=== PATIENT | female | born 1990 | race Two or more races ===

== ENCOUNTER 2018-10-26 06:10 | Inpatient (IN) | payer OTHER ==
[2018-10-26] MEDS: DEXTROSE 5%-LACTATED RINGERS 1,000 ML IV SCH ×2 (06:45→14:58)
[2018-10-26] MEDS ORDERED: AMPICILLIN SODIUM 2 GM VIAL ONE (07:29)
[2018-10-26] MEDS ORDERED: AMPICILLIN - 2 GM in SODIUM CHLORIDE 100 ML IVPB ONE (07:30)
[2018-10-26 08:03] VITALS: BMI 30.2
[2018-10-26 08:29] LABS: BASO % 0.2 % (0-2.0); EOS % 1.7 % (0-4.5); HEMATOCRIT 39.2 % (32.4-45.2); HEMOGLOBIN 13.6 GM/dL (10.7-15.3); LYMPH % 18.4 % (8-40); MCH 32.2 pg (25.7-33.7); MCHC 34.6 g/dl (32.0-36.0); MEAN CELL VOLUME 93.1 fl (80-96); MEAN PLT VOLUME 10.3 fl (7.5-11.1); MONO % 7.2 % (3.8-10.2); NEUT % 72.5 % (42.8-82.8); PLATELET COUNT 221 K/MM3 (134-434); RBC 4.21 M/mm3 (3.60-5.2); RDW 12.8 % (11.6-15.6); WHITE BLOOD COUNT 9.5 K/mm3 (4.0-10.0)
[2018-10-26 08:35] LABS: INR 0.92 (0.83-1.09); PROTHROMBIN TIME (PATIENT) 10.9 SEC (9.7-13.0)
[2018-10-26 08:38] LABS: ACTIVATED PTT 28.3 SECONDS (25.2-36.5)
[2018-10-26 08:47] LABS: ALBUMIN 2.9 g/dl (3.4-5.0); ALK PHOS 131 U/L (45-117); ANION GAP 10 MMOL/L (8-16); BILIRUBIN,TOTAL 0.5 mg/dL (0.2-1); BLOOD UREA NITROGEN 12 mg/dL (7-18); CALCIUM 8.6 mg/dL (8.5-10.1); CHLORIDE 106 mmol/L (98-107); CO2 23 mmol/L (21-32); CREATININE 0.6 mg/dL (0.55-1.3); GLUCOSE,RANDOM 86 mg/dL (74-106); POTASSIUM 3.7 mmol/L (3.5-5.1); SGOT/AST 24 U/L (15-37); SGPT/ALT 24 U/L (13-61); SODIUM 139 mmol/L (136-145); TOT PROT 6.4 g/dl (6.4-8.2)
[2018-10-26] MEDS: AMPICILLIN - 1 GM in SODIUM CHLORIDE 100 ML IVPB SCH ×4 (11:30→23:30)
[2018-10-26] MEDS ORDERED: AMPICILLIN SODIUM 1 GM VIAL ONE ×4 (11:35→23:46)
--- NOTE | 2018-10-26 12:13 | PN ---
Progress Note (short form) - Note Progress Note: cx closed , posr, 25 perecent effaced, vx -3 , gross ROM, clear , irregular contraction, induction, vs expectant management and iv antibiotics for unknown GBS discussed
[2018-10-26] MEDS ORDERED: BUTORPHANOL TARTRATE 2 MG/ML VIAL IVPUSH PRN (12:14)
[2018-10-26] MEDS ORDERED: PROMETHAZINE HCL 25 MG/1 ML VIAL IVPUSH ONE (12:14)
--- NOTE | 2018-10-26 12:14 | HP ---
Past Medical History - Primary Care Physician PCP:: Catracho Arnold - Admission Chief Complaint: 38 weeks, PROM History of Present Illness: 27 yo f 38 weeks with SROM since 5 am today, clear fluid, , cx closed , vx -3 mrmarni, nitrazine positve, fhr cat 1. irregular contraction., expectant management vs induction of labor discussed , risks of infection discussed History Source: Patient Limitations to Obtaining History: No Limitations - Past Medical History ...: 1 ...Para: 0 ...Term: 0 ...: 0 ...Spon : 0 ...Induced : 0 ...Multiple Gestation: 0 ...EDC by Sono: 11/07/18 - Past Surgical History Hx Myomectomy: No Hx Transabdominal Cerclage: No - Smoking History Smoking history: Never smoked Have you smoked in the past 12 months: No - Alcohol/Substance Use Hx Alcohol Use: No - Social History History of Recent Travel: No Home Medications - Allergies Allergies/Adverse Reactions: Allergies Allergy/AdvReac Type Severity Reaction Status Date / Time No Known Allergies Allergy Verified 10/26/18 18:45 - Home Medications Home Medications: Ambulatory Orders Pnv,Calcium 72/Iron/Folic Acid [ Plus Tablet] 1 tab PO DAILY 10/08/18 Review of Systems - Review of Systems Constitutional: reports: No Symptoms Eyes: reports: No Symptoms HENT: reports: No Symptoms Neck: reports: No Symptoms Cardiovascular: reports: No Symptoms Gastrointestinal: reports: No Symptoms Genitourinary: reports: No Symptoms Breasts: reports: No Symptoms Reported Musculoskeletal: reports: No Symptoms Integumentary: reports: No Symptoms Neurological: reports: No Symptoms Endocrine: reports: No Symptoms Hematology/Lymphatic: reports: No Symptoms Psychiatric: reports: No Symptoms Physical Exam - Maternity Vital Signs: Vital Signs Temperature 98.0 F 10/26/18 10:00 Pulse Rate 80 10/26/18 11:00 Respiratory Rate 20 10/26/18 11:00 Blood Pressure 120/62 10/26/18 11:00 O2 Sat by Pulse Oximetry (%) Constitutional: Yes: Well Nourished, No Distress, Calm Eyes: Yes: WNL, Conjunctiva Clear, EOM Intact HENT: Yes: WNL, Atraumatic, Normocephalic Neck: Yes: WNL, Supple, Trachea Midline Cardiovascular: Yes: WNL, Regular Rate and Rhythm Breast(s): Yes: WNL - Abdominal Exam/OB Fundal Height: 38 Number of Fetuses: Single Presentation: Vertex Contractions: Yes Regularity: Irregular Intensity: Mild/Mod Monitor Mode: External Heart Rate Location: [facility] Category: I Accelerations: Uniform Decelerations: None - Vaginal Exam/OB Vaginal Bleediing: No Speculum Exam: Yes Dilatation (cm): closed Effacement (%): 25 Amniotic Membrane Status: Intact Nitrazine Test: Positive Station: -3 - Physical Exam Musculoskeletal: Yes: WNL Extremities: Yes: WNL Edema: LLE: Trace, RLE: Trace Deep Tendon Reflex Grade: Normal +2 ...Motor Strength: WNL Psychiatric: Yes: WNL - Labs Lab Results: CBC, BMP 10/26/18 07:50 10/26/18 07:50 Hemorrhage Risk Assessment - Risk Factors Medium Risk Factors: Yes: None High Risk Factors: Yes: None Risk Score: 1 Risk Level: Medium Risk Problem List - Problems (1) with 38 completed weeks gestation Code(s): Z3A.38 - 38 WEEKS GESTATION OF (2) PROM (premature rupture of membranes) Code(s): O42.90 - BLAZE ROM, 7TH0 BETW RUPT & ONST LABR, UNSP WEEKS OF GEST Qualifiers: PROM onset of labor timing: onset of labor within 24 hours of rupture PROM gestational age: -third trimester Qualified Code(s): O42.013 - premature rupture of membranes, onset of labor within 24 hours of rupture, third trimester Assessment/Plan admit, fhm iv amp. for unknown GBS pain management
[2018-10-26] MEDS ORDERED: TUBERCULIN PPD 5 TU/0.1ML SYRINGE (IN PATIENT USE ONLY) ID ONE (12:15)
[2018-10-26 12:27] LABS: COCAINE, UR NEGATIVE ng/ml (CUTOFF=300); METHADONE, UR NEGATIVE ng/ml (CUTOFF=300); OPIATES, URI NEGATIVE ng/ml (CUTOFF=300); PHENCYCLIDINE,URINE NEGATIVE ng/ml (CUTOFF=25); URINE AMPHETAMINES NEGATIVE ng/ml (CUTOFF=500); URINE BARBITURATES NEGATIVE ng/ml (CUTOFF=200); URINE BENZODIAZEPINES NEGATIVE ng/ml (CUTOFF=200)
[2018-10-26 13:46] LABS: EPI CELLS 18.3 /HPF (0-5/HPF); PH,URINE 7.5 (5.0-8.0); URINE APPEARANCE TURBID; URINE BILIRUBIN NEGATIVE (NEGATIVE); URINE CASTS 356 /lpf (0-8); URINE COLOR YELLOW; URINE GLUCOSE (UA) NEGATIVE (NEGATIVE); URINE KETONE NEGATIVE (NEGATIVE); URINE LEUK ESTERASE NEGATIVE (NEGATIVE); URINE NITRITE NEGATIVE (NEGATIVE); URINE PROTEIN 2+ (NEGATIVE); URINE RBC 169 /hpf (0-4); URINE UROBILINOGEN 0.2 mg/dL (0.2-1.0); URINE WBC 1 /hpf (0-5)
[2018-10-26 13:47] LABS: URINE BACTERIA 15.1 /hpf (NEGATIVE)
[2018-10-26] MEDS ORDERED: BUTORPHANOL TARTRATE 2 MG/ML VIAL ONE (18:22)
[2018-10-26] MEDS ORDERED: PROMETHAZINE HCL 25 MG/1 ML VIAL ONE (18:22)
[2018-10-26] MEDS: ELECTROLYTE-148 SOLN 1,000 ML IV SCH (20:30)
[2018-10-26] MEDS ORDERED: NALOXONE HCL 0.4 MG/ML VIAL IVPUSH PRN (20:37)
[2018-10-26] MEDS ORDERED: LIDO 2%/EPI 1:200000 PRESRVFRE (20 ML SDVIAL) ONE (20:40)
[2018-10-26] MEDS ORDERED: FENTANYL/BUPIVACAINE/NS/PF - PCEA - 50 ML DISP.SYRIN EP ONE (20:42)
[2018-10-26] MEDS ORDERED: FENTANYL/BUPIVACAINE/NS/PF - PCEA - 50 ML DISP.SYRIN EP SCH (20:45)
[2018-10-26] MEDS ORDERED: OXYTOCIN 20 UNITS in 0.9% NS 20 UNIT/1,000 ML INFUS.BAG IV ONE (23:47)
[2018-10-27] MEDS ORDERED: OXYTOCIN 30 UNITS in 0.9% NS 30 UNIT/500 ML INFUS.BAG IVPB ONE (02:25)
[2018-10-27] MEDS ORDERED: LIDOCAINE HCL 1% PRESERVATIVE FREE - 30ML VIAL ONE (02:28)
[2018-10-27] MEDS: OXYTOCIN 20 UNITS in 0.9% NS 20 UNIT/1,000 ML INFUS.BAG IV SCH (02:55)
[2018-10-27] MEDS ORDERED: WITCH HAZEL 50% (TUCKS) 40 PAD/JAR PAD TP PRN (03:03)
[2018-10-27] MEDS ORDERED: BISACODYL 10 MG SUPP.RECT RC PRN (03:03)
[2018-10-27] MEDS ORDERED: BENZOCAINE 20% 57 GM BOTTLE TP PRN (03:03)
[2018-10-27] MEDS ORDERED: BENZOCAINE 28 GM HEMORRHOIDAL OINTMENT TP PRN (03:03)
[2018-10-27] MEDS ORDERED: METHYLERGONOVINE MALEATE 0.2 MG/1 ML AMP IM PRN (03:03)
[2018-10-27] MEDS ORDERED: D5W-LR W/ 20 UNITS OXYTOCIN 1,000 ML IV SCH (03:15)
[2018-10-27 03:22] LABS: VENOUS PC02 48.1 mmHg (41-51); VENOUS PH 7.32 (7.31-7.41)
[2018-10-27 03:25] LABS: ARTERIAL BLD GAS O2 SATURATION 37.2 % (95-98); ARTERIAL BLOOD GAS BASE EXCESS -3.3 meq/l (-2-2); ARTERIAL BLOOD GAS PCO2 60.3 mmHg (35-45); ARTERIAL BLOOD GAS pH 7.25 (7.35-7.45)
[2018-10-27 03:31] LABS: ARTERIAL BLOOD GAS PO2 21.2 mmHg (80-105)
[2018-10-27 03:32] LABS: VENOUS PO2 29.6 mmHg (30-40)
[2018-10-27] MEDS: ACETAMINOPHEN 325 MG TABLET (FP) PO PRN ×4 (04:50→19:44)
[2018-10-27] MEDS: IBUPROFEN 600 MG TABLET (FP) PO PRN ×4 (04:50→19:44)
[2018-10-27] MEDS ORDERED: IBUPROFEN 600 MG TABLET (FP) PO ONE (04:52)
[2018-10-27] MEDS ORDERED: ACETAMINOPHEN 325 MG TABLET (FP) ONE (04:52)
[2018-10-27] MEDS: AMPICILLIN - 1 GM in SODIUM CHLORIDE 100 ML IVPB SCH (06:19)
--- NOTE | 2018-10-27 07:57 | PN ---
Delivery - Delivery Vaginal Delivery: Spontaneous (ant and posterior shoulder with no difficulty . live baby boy, 9/9 no complication) Type of Anesthesia: Local, Epidural Episiotomy/Laceration: Midline EBL (cc): 300 Delivery, Single - Stages of Labor Date 1st Stage Initiatied: 10/26/18 Time 1st Stage Initiated: 12:00 Date 2nd Stage Initiated: 10/27/18 Time 2nd Stage Initiated: 00:00 Date of Delivery: 10/27/18 Time of Delivery: 02:41 Time Placenta Delivered: 02:51 - Condition of Child Care Centre Director/Financial Writer Present: No Infant Gender: Male Weight: 6 lb 13 oz Position: OA Total Hours ROM (Hrs/Mins): 21hr.20mins. - 1 Minute Total Score: 9 5 Minutes Total Score: 9 - Feeding Plan Initial Plan: Elected not to breastfeed exclusively throughout hospitalization
[2018-10-27] MEDS: FERROUS SO4 325 MG TABLET (FP) PO SCH ×2 (10:34→23:27)
[2018-10-27] MEDS: PRENATAL VITAMINS W/ FOLIC ACID TABLET (FP) PO SCH (10:34)
[2018-10-27 14:14] LABS: HBsAG SCREEN Negative (Negative)
[2018-10-27 19:09] LABS: RUBELLA IgG ANTIBODY 4.18 index (Immune >0.99)
[2018-10-28] MEDS: ACETAMINOPHEN 325 MG TABLET (FP) PO PRN ×4 (00:48→21:59)
[2018-10-28] MEDS: IBUPROFEN 600 MG TABLET (FP) PO PRN ×4 (00:49→22:00)
[2018-10-28 08:55] LABS: BASO % 0.6 % (0-2.0); EOS % 1.5 % (0-4.5); HEMATOCRIT 31.4 % (32.4-45.2); HEMOGLOBIN 10.7 GM/dL (10.7-15.3); LYMPH % 19.1 % (8-40); MCH 32.2 pg (25.7-33.7); MCHC 34.2 g/dl (32.0-36.0); MEAN CELL VOLUME 94.2 fl (80-96); MEAN PLT VOLUME 10.1 fl (7.5-11.1); MONO % 7.9 % (3.8-10.2); NEUT % 70.9 % (42.8-82.8); PLATELET COUNT 165 K/MM3 (134-434); RBC 3.33 M/mm3 (3.60-5.2); RDW 12.8 % (11.6-15.6); WHITE BLOOD COUNT 10.9 K/mm3 (4.0-10.0)
[2018-10-28] MEDS: FERROUS SO4 325 MG TABLET (FP) PO SCH ×2 (09:38→22:00)
[2018-10-28] MEDS: PRENATAL VITAMINS W/ FOLIC ACID TABLET (FP) PO SCH (09:38)
--- NOTE | 2018-10-28 10:17 | PN ---
Post Progress Note - Subjective Subjective: 27 yo Para 1 status post vaginal delivery, seen and evaluated. Doing well. Post Day: 1 Type of Delivery: Vital Signs: Vital Signs Temperature 97.9 F 10/28/18 06:00 Pulse Rate 68 10/28/18 06:00 Respiratory Rate 18 10/28/18 06:00 Blood Pressure 111/56 L 10/28/18 06:00 O2 Sat by Pulse Oximetry (%) 99 10/27/18 03:45 Breast Exam: Yes: Soft Uterus: Yes: Fundus Firm Abdomen/GI: Yes: Abdomen soft, Tolerating PO Lochia: Yes: Rubra Lochia, amount: Moderate Extremities: Yes: Calves non-tender Activity: Ambulating - Labs Labs: CBC WBC 10.9 K/mm3 (4.0-10.0) H 10/28/18 08:30 RBC 3.33 M/mm3 (3.60-5.2) L 10/28/18 08:30 Hgb 10.7 GM/dL (10.7-15.3) 10/28/18 08:30 Hct 31.4 % (32.4-45.2) L D 10/28/18 08:30 MCV 94.2 fl (80-96) 10/28/18 08:30 MCH 32.2 pg (25.7-33.7) 10/28/18 08:30 MCHC 34.2 g/dl (32.0-36.0) 10/28/18 08:30 RDW 12.8 % (11.6-15.6) 10/28/18 08:30 Plt Count 165 K/MM3 (134-434) D 10/28/18 08:30 MPV 10.1 fl (7.5-11.1) 10/28/18 08:30 Absolute Neuts (auto) 7.7 K/mm3 (1.5-8.0) 10/28/18 08:30 Neutrophils % 70.9 % (42.8-82.8) 10/28/18 08:30 Lymphocytes % 19.1 % (8-40) 10/28/18 08:30 Monocytes % 7.9 % (3.8-10.2) 10/28/18 08:30 Eosinophils % 1.5 % (0-4.5) 10/28/18 08:30 Basophils % 0.6 % (0-2.0) 10/28/18 08:30 Nucleated RBC % 0 % (0-0) 10/28/18 08:30 Problem List - Problems (1) Status post normal vaginal delivery Code(s): OAR2992 - Assessment/Plan Status post vaginal delivery Stable Continue routine care
[2018-10-28] MEDS ORDERED: SENNOSIDES/DOCUSATE COMBO (SENNA PLUS) TABLET (UD) PO PRN (22:00)
[2018-10-29] MEDS: OXYTOCIN 20 UNITS in 0.9% NS 20 UNIT/1,000 ML INFUS.BAG IV SCH (01:23)
[2018-10-29] MEDS: DEXTROSE 5%-LACTATED RINGERS 1,000 ML IV SCH (01:23)
[2018-10-29] MEDS: ELECTROLYTE-148 SOLN 1,000 ML IV SCH (01:23)
[2018-10-29] MEDS: ACETAMINOPHEN 325 MG TABLET (FP) PO PRN ×2 (04:09→09:20)
[2018-10-29] MEDS: IBUPROFEN 600 MG TABLET (FP) PO PRN ×2 (04:09→09:19)
--- NOTE | 2018-10-29 06:04 | PN ---
Post Progress Note Post Day: 2 Type of Delivery: Vital Signs: Vital Signs Temperature 98.4 F 10/28/18 22:00 Pulse Rate 84 10/28/18 22:00 Respiratory Rate 18 10/28/18 22:00 Blood Pressure 128/82 10/28/18 22:00 O2 Sat by Pulse Oximetry (%) 99 10/27/18 03:45 Uterus: Yes: Fundus Firm Abdomen/GI: Yes: Abdomen soft Lochia: Yes: Rubra Lochia, amount: Small Extremities: Yes: Calves non-tender Perineum: Yes: Intact Activity: Ambulating - Labs Labs: CBC WBC 10.9 K/mm3 (4.0-10.0) H 10/28/18 08:30 RBC 3.33 M/mm3 (3.60-5.2) L 10/28/18 08:30 Hgb 10.7 GM/dL (10.7-15.3) 10/28/18 08:30 Hct 31.4 % (32.4-45.2) L D 10/28/18 08:30 MCV 94.2 fl (80-96) 10/28/18 08:30 MCH 32.2 pg (25.7-33.7) 10/28/18 08:30 MCHC 34.2 g/dl (32.0-36.0) 10/28/18 08:30 RDW 12.8 % (11.6-15.6) 10/28/18 08:30 Plt Count 165 K/MM3 (134-434) D 10/28/18 08:30 MPV 10.1 fl (7.5-11.1) 10/28/18 08:30 Absolute Neuts (auto) 7.7 K/mm3 (1.5-8.0) 10/28/18 08:30 Neutrophils % 70.9 % (42.8-82.8) 10/28/18 08:30 Lymphocytes % 19.1 % (8-40) 10/28/18 08:30 Monocytes % 7.9 % (3.8-10.2) 10/28/18 08:30 Eosinophils % 1.5 % (0-4.5) 10/28/18 08:30 Basophils % 0.6 % (0-2.0) 10/28/18 08:30 Nucleated RBC % 0 % (0-0) 10/28/18 08:30 Assessment/Plan ppd 2 dc home
[2018-10-29] MEDS: PRENATAL VITAMINS W/ FOLIC ACID TABLET (FP) PO SCH (09:19)
[2018-10-29] MEDS: FERROUS SO4 325 MG TABLET (FP) PO SCH (09:19)
[2018-10-29 12:15] VITALS: BP 113/59; PULSE 61; TEMP 98.3
== END 2018-10-29 14:30 | disposition home or self-care (01) | DRG 560 ==
LOC: JLDR 06:10 → J3W 10-27 05:14
PROVIDERS: ADMIT Obstetrics & Gynecology; ATTEND Obstetrics & Gynecology
PROC: 10E0XZZ Delivery of Products of Conception, External Approach (ICD-10-PCS; principal; 2018-10-27)
DX: O42.02 Full-term premature rupture of membranes, onset of labor within 24 hours of rupture (principal); Z3A.38 38 weeks gestation of pregnancy; Z37.0 Single live birth
CPT/HCPCS: 36415; 36600; 59409; 80053; 80307; 81003; 82803; 85025; 85610; 85730; 86593; 86762; 86850; 86900; 86901; 87340; 87389